=== PATIENT | female | born 1935 | race Caucasian/White ===

== ENCOUNTER 2016-05-12 09:13 | Inpatient (IN) | payer OTHER, BC ==
[~2016-05-12] VITALS: Ht 167.6 cm; Wt 77.2 kg
--- NOTE | ~2016-05-12 | EKG ---
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: Alia LITTLE : 1935 Requested By: Spring Figueroa Order Number: [id number] MD: Dmitri Elizondo Measurements Intervals [place] Rate: 124 P: [place]: QRS: 21 QRSD: 113 T: 254 QT: 405 QTc: 582 Interpretive Statements Atrial flutter LVH with IVCD and secondary repol abnrm Prolonged QT interval Compared to ECG 04/15/2016 09:42:58 Atrial flutter has replaced sinus rhythm Electronically Signed On 05-13-2016 8:51:57 DOUBLE NEEDLE OPERATOR by Dmitri Elizondo [email or web address] <ELECTRONICALLY SIGNED> By: Dmitri Elizondo MD, [facility] 05/13/16 0851 0 Dmitri Elizondo MD, [facility] /EPI
--- NOTE | ~2016-05-12 | EKG ---
[address] [place] [address] ELECTROCARDIOGRAM REPORT Name: CHOCO JACK Room #: 219-P ADM IN .R.#: [id number] Admission: 05/12/16 Attend Phys: Hernando Dickson MD Discharge: Date of : 39 Report #: [id number] THIS REPORT FOR: //name// [facility] ED Test Date: 2016-05-12 Test Time: 10:11:15 Pat Name: CHOCO JACK Department: Room: 219 Gender: F Coding Compliance Auditor: Alia LITTLE : 1935 Requested By: Spring Figueroa Order Number: [id number] MD: Dmitri Elizondo Measurements Intervals [place] Rate: 104 P: [place]: QRS: 39 QRSD: 111 T: 209 QT: 366 QTc: 482 Interpretive Statements Atrial flutter LVH with IVCD and secondary repol abnrm Compared to ECG 04/15/2016 09:42:58 no significant change was found Electronically Signed On 05-13-2016 8:52:43 CROP PEST CONTROL SPECIALIST by Dmitri Elizondo [email or web address] <ELECTRONICALLY SIGNED> By: Dmitri Elizondo MD, [facility] 05/13/16 0852 [id number] [id number] Dmitri Elizondo MD, [facility] /EPI
--- NOTE | ~2016-05-12 | D ---
[facility] [place] [address] DISCHARGE SUMMARY Name: CHOCO JACK Room #: 219-P [facility]#: [id number] Admission: 05/12/16 Attend Phys: Hernando Dickson MD Discharge: 05/13/16 Date of : 39 Report #: [id number] THIS REPORT FOR: //name// CC: Zbigniew Dickson DATE OF SERVICE: 05/13/2016 DATE OF ADMISSION: 05/12/2016. DATE OF DISCHARGE: 05/13/2016. DISCHARGE DIAGNOSES: 1. Atrial fibrillation and atrial flutter with rapid ventricular response, now improved. 2. Hypertension. 3. Dyslipidemia. 4. History of breast cancer. CONSULTS: Cardiology. PROCEDURES: None. HOSPITAL COURSE: The patient is a 80-year-old female with a history of hypertension, dyslipidemia, was admitted from [facility] for tachyarrhythmia. Please see details of admission dictated by Dr. Barrientos on 05/12/2016. The patient was getting her stress test done when she became tachycardic. She had evidence of AFib/AFlutter, was admitted to the hospital. She was admitted in Cardiology, Dr. Gardiner was consulted. She was started on Cardizem drip and was eventually transition to oral Cardizem. She was also started on Eliquis as well. Additionally, she was started on metoprolol and her heart rate was controlled well with this regimen. At that point she was cleared for discharge home by Cardiology. She denied any new complaints. Nurses report no other problems. DISCHARGE DISPOSITION: To home. DISCHARGE PHYSICAL EXAMINATION: VITAL SIGNS: Temperature of 36.7, pulse 84, blood pressure 114/56, O2 sat 100% on room air. GENERAL: She is awake, alert, answering questions appropriately, in no acute respiratory distress. CARDIOVASCULAR: Regular rate and rhythm. No murmurs. LUNGS: Clear to auscultation bilaterally. No crackles or wheeze. ABDOMEN: Soft, no distention or tenderness. EXTREMITIES: No edema. [address] [address] DISCHARGE SUMMARY Name: CHOCO JACK Room #: 219-[facility] IN ..#: [id number] Admission: 05/12/16 Attend Phys: Hernando Dickson MD Discharge: 05/13/16 Date of : 39 Report #: [id number] NEUROLOGIC: Nonfocal. DISCHARGE MEDICATIONS: Eliquis 5 mg b.i.d., Cardizem-CD 240 daily, restart Eliquis 5 mg b.i.d., Cardizem-CD 240 daily, metoprolol 50 mg daily, multivitamin daily, Pravachol 40 daily, Neurontin 600 daily, tramadol p.r.n., hydrochlorothiazide 25 daily, Align 4 mg p.r.n., Prolia 60 mg subq daily, anastrozole 1 mg daily, calcium with vitamin D one tablet b.i.d., Xanax p.r.n., Lexapro 10 mg daily. DIET: Regular diet. ACTIVITY: As tolerated. FOLLOWUP: With primary care in 1 week with repeat labs. Follow up with Cardiology in 2 weeks and seek immediate medical attention if symptoms worsen or recur if she has any significant medical concerns. Discharge planning took 40 minutes. I explained to her discharge diagnoses, treatment plan and appropriate followup in detail. She had no further questions. <ELECTRONICALLY SIGNED> By: Sweta Barrientos MD 06/23/16 1053 09 [id number] Sweta Barrientos MD /nt
[~2016-05-12 09:13] MED LIST: ACTIVELLA 1.0-1 EACH PO; ACTIVELLA1 TAB PO; ALIGN4 MG PO; ANASTROZOLE1 MG PO; ATIVAN0.5 MG PO; BACTRIM DS TAB1 EACH PO; CALCIUM +D & M1 EACH PO; CALCIUM 600 +1 EA17 PO; COLACE100 MG PO; DEXAMETHASONE 44 M1 PO; ECOTRIN325 MG PO; FENTANYL PA25 MCG/HR TRANSDERM; FISH OIL 1,0001 EAC8 PO; FISH OIL500 M1 PO; HCTZ; HYDROCHLOROTHIA25 M1 PO; HYDROCHLOROTHIA25 M2 PO; IMODIUM ADVANC1 EAC1 PO; IMODIUM MULTI-1 EACH PO; LOPERAMIDE 2 MG2 M1 PO; LOW DOSE ASPIRI81 M1 PO; MULTIVITAMINS PO; NEURONTIN600 MG PO; NORCO 5-325 TA1 EACH PO; NORVASC; NORVASC 5 MG TAB5 MG PO; ONDANSETRON HCL4 M2 PO; OS-CAL 500+D C1 EACH PO; PRAVACHOL40 M1 PO; PRAVASTATIN SOD40 MG PO; PROLIA60 MG/1 ML SQ; TRAMADOL 50 MG50 MG PO; TYLENOL325 MG PO; XANAX 0.25 MG0.25 MG PO; ZANTAC 150MG T150 MG PO; ZOFRAN ODT4 MG PO; ZOFRAN4 MG PO
[2016-05-12 09:14] VITALS: BP 112/66
[2016-05-12] MEDS ORDERED: ESCITALOPRAM OX10 MG PO (09:32)
[2016-05-12] MEDS ORDERED: FLECAINIDE ACET50 M1 PO (09:32)
[2016-05-12 09:45] LABS: HEMATOCRIT 36.1 % (37.0-47.0); HEMOGLOBIN 12.6 gm/dL (12.0-15.0); MANUAL DIFF YES; MCV 85.5 fL (80.0-100.0); PLATELET COUNT 349 thou/uL (150-400); RBC 4.22 mil/uL (4.20-5.00); RDW 13.9 % (10.5-14.5); WBC 7.8 thou/uL (4.0-11.0)
[2016-05-12 09:52] LABS: CALCIUM 8.7 mg/dL (8.5-10.1); CREATININE 0.7 mg/dL (0.6-1.3); POTASSIUM 3.1 mmol/L (3.5-5.1)
[2016-05-12 10:25] LABS: ABSOLUTE NEUTROPHILS 6.6 thou/uL (1.4-8.2); PLATELET ESTIMATE NORMAL; TOTAL CELL COUNT 100
[2016-05-12 10:28] LABS: APTT 25.6 Seconds (24.5-32.8); INR 1.1; PROTIME 11.8 Seconds (9.3-11.4)
[2016-05-12 11:25] VITALS: BP 98/54
[2016-05-12 11:45] VITALS: BP 101/51
[2016-05-12 16:00] VITALS: BP 110/58
[2016-05-12 21:27] VITALS: BP 120/70
[2016-05-12 23:18] VITALS: BP 104/57
[2016-05-13 03:13] VITALS: BP 121/75
[2016-05-13 04:24] LABS: CALCIUM 8.3 mg/dL (8.5-10.1); CREATININE 0.5 mg/dL (0.6-1.3); POTASSIUM 3.7 mmol/L (3.5-5.1)
[2016-05-13 04:29] LABS: ALBUMIN 2.4 g/dL (3.4-5.0); MAGNESIUM 1.8 mg/dL (1.8-2.4); TOTAL BILIRUBIN 0.3 mg/dL (<0.1-1.0); TOTAL PROTEIN 5.7 g/dL (6.4-8.2)
[2016-05-13 08:36] VITALS: BP 114/56
[2016-05-13 09:41] VITALS: BP 114/56
[2016-05-13 09:44] VITALS: BP 114/56
[2016-05-13] MEDS ORDERED: METOPROLOL SUCC50 MG PO (12:30)
[2016-05-13] MEDS ORDERED: ELIQUIS5 MG PO (12:30)
[2016-05-13] MEDS ORDERED: CARDIZEM CD240 MG PO (12:30)
== END 2016-05-13 15:30 | disposition home or self-care (01) | DRG 308 ==
LOC: ER 09:13 → EROBS 10:17 → 2N 10:17
PROVIDERS: Emergency Medicine; Nurse Practitioner
DX: I48.91 Unspecified atrial fibrillation (principal); E43 Unspecified severe protein-calorie malnutrition; E87.6 Hypokalemia; E78.5 Hyperlipidemia, unspecified; I48.92 Unspecified atrial flutter; Z60.2 Problems related to living alone; E83.42 Hypomagnesemia; I10 Essential (primary) hypertension; Z87.891 Personal history of nicotine dependence; Z85.820 Personal history of malignant melanoma of skin; Z79.899 Other long term (current) drug therapy; Z90.49 Acquired absence of other specified parts of digestive tract; Z88.6 Allergy status to analgesic agent; Z85.3 Personal history of malignant neoplasm of breast; Z79.82 Long term (current) use of aspirin; Z90.12 Acquired absence of left breast and nipple
CPT/HCPCS: 10081

== ENCOUNTER 2018-02-22 13:48 | Emergency (ER) | payer OTHER, BC ==
[~2018-02-22] VITALS: Ht 167.6 cm; Wt 79.4 kg
[~2018-02-22 13:48] MED LIST changes: +CARDIZEM CD240 MG PO; +ELIQUIS5 MG PO; +ESCITALOPRAM OX10 MG PO; +FLECAINIDE ACET50 M1 PO; +METOPROLOL SUCC50 MG PO
[2018-02-22 15:56] VITALS: BP 98/62
== END 2018-02-22 15:58 | disposition home or self-care (01) ==
LOC: ER 13:48
DX: S09.90XA Unspecified injury of head, initial encounter (principal); M25.562 Pain in left knee; Z87.891 Personal history of nicotine dependence; Z88.5 Allergy status to narcotic agent; Z90.49 Acquired absence of other specified parts of digestive tract; I10 Essential (primary) hypertension; E78.5 Hyperlipidemia, unspecified; Z90.12 Acquired absence of left breast and nipple; Z85.3 Personal history of malignant neoplasm of breast; I48.91 Unspecified atrial fibrillation; V48.5XXA Car driver injured in noncollision transport accident in traffic accident, initial encounter; Y93.89 Activity, other specified; Y92.89 Other specified places as the place of occurrence of the external cause; Y99.8 Other external cause status